=== PATIENT | female | born 1935 | race Caucasian/White ===

== ENCOUNTER 2018-10-20 20:50 | Emergency (ER) ==
[2018-10-20 20:59] VITALS: BP 144/74; TEMP 97.8; BMI 24.6
--- NOTE | 2018-10-20 21:40 | DI ---
Exam: Left foot three-view History: Fall with redness and pain Findings / impression: No acute bony or articular abnormality. Mild degenerative change of the firs t metatarsal phalangeal joint.
--- NOTE | 2018-10-20 22:15 | ED.PDOC ---
General ED Provider: Dr. ONEIDA JARA-ER Chief Complaint: Foot Pain/Injury Stated Complaint: my foot hurts--its red and sore Time Seen by Physician: 20:55 Mode of Arrival: Walk-In Information Source: Patient Exam Limitations: No limitations Primary Care Provider: ONEIDA JARA Nursing and Triage Documentation Reviewed and Agree: Yes Does patient meet sepsis criteria?: No System Inflammatory Response Syndrome: Not Applicable Sepsis Protocol: For patient's 13 years and over: Temp is 96.8 and below OR 101 and greater Pulse >90 BPM Resp >20/minute Acutely Altered Mental Status Are patient's symptoms suggestive of a new infection, such as: -Pneumonia -Skin, Soft Tissue -Endocarditis -UTI -Bone, Joint Infection -Implantable Device -Acute Abdominal Infection -Wound Infection -Meningitis -Blood Stream Catheter Infection -Unknown Skin Complaint Exam - Skin/Soft Tissue Complaint/Exam Onset/Duration: 2 days Symptoms Are: Still present Timing: Constant Initial Severity: Mild Current Severity: Mild Location: anterior left foot Character: Reports: Redness, Swelling, Raised, Painful Aggravating: Reports: Touch Associated Signs and Symptoms: Reports: Tenderness, Red streaks Related Surgical History: Reports: None Recent Exposure to Others w/Similar Symptoms: No Skin Findings: Present: Erythema Joint Tenderness Present: No Differential Diagnoses: Cellulitis, Infection Review of Systems - Review Of Systems Constitutional: Reports: No symptoms Eyes: Reports: No symptoms Ears, Nose, Mouth, Throat: Reports: No symptoms Respiratory: Reports: No symptoms Cardiac: Reports: No symptoms GI: Reports: No symptoms : Reports: No symptoms Musculoskeletal: Reports: No symptoms Skin: Reports: Change in color Neurological: Reports: No symptoms Endocrine: Reports: No symptoms Hematologic/Lymphatic: Reports: No symptoms All Other Systems: Reviewed and Negative Past Medical History - Past Medical History Previously Healthy: Yes Endocrine: Reports: DM 2 Cardiovascular: Reports: Hypertension Respiratory: Reports: COPD Hematological: Reports: None Gastrointestinal: Reports: None Genitourinary: Reports: None Neuro/Psych: Reports: None Musculoskeletal: Reports: None Cancer: Reports: Breast Last Menstrual Period: hyst - Surgical History General Surgical History: Reports: Unknown - Family History Family History: Reports: Unknown - Social History Smoking Status: Current some day smoker, Light tobacco smoker Hx Substance Use: No Alcohol Screening: Occasionally - Immunizations Tetanus Shot up to Date: No (unsure) Physical Exam - Physical Exam Appearance: Well-appearing, No pain distress, Well-nourished Eyes: HERMINIO, EOMI, Conjunctiva clear ENT: Ears normal, Nose normal, Oropharynx normal Neck: Supple Respiratory: Airway patent, Breath sounds clear, Breath sounds equal, Respirations nonlabored Cardiovascular: RRR, Pulses normal, No rub, No murmur GI/: Soft, Nontender, No masses, Bowel sounds normal, No Organomegaly Musculoskeletal: Normal strength, ROM intact, No edema, No calf tenderness Skin: Warm, Dry, Normal color Neurological: Sensation intact, Motor intact, Reflexes intact, Cranial nerves intact, Alert, Oriented Psychiatric: Affect appropriate, Mood appropriate Interpretation - Radiology Interpretation Radiology Interpretation By: Radiologist Radiology Results: Negative Critical Care Note - Critical Care Note Total Time (mins): 0 Course - Course Hematology/Chemistry: 10/20/18 21:16 10/20/18 21:16 Orders, Labs, Meds: Lab Review 10/20/18 10/20/18 21:16 21:16 WBC 9.99 RBC 3.88 L Hgb 11.5 L Hct 35.9 L MCV 92.5 MCH 29.6 MCHC 32.0 RDW Coeff of Fadi 13.3 Plt Count 274 Immature Gran % (Auto) 0.3 Neut % (Auto) 66.1 Lymph % (Auto) 19.3 [place] % (Auto) 10.5 H Eos % (Auto) 3.2 Baso % (Auto) 0.6 Immature Gran # (Auto) 0.0 Neut # (Auto) 6.6 Lymph # (Auto) 1.9 [place] # (Auto) 1.1 Eos # (Auto) 0.3 Baso # (Auto) 0.1 ESR 12 Sodium 139.9 Potassium 3.99 Chloride 105.3 Carbon Dioxide 25.3 Anion Gap 13.29 BUN 16.5 Creatinine 0.92 Estimated GFR (MDRD) 58.00 BUN/Creatinine Ratio 17.93 Glucose 104.3 Uric Acid 5.32 Calcium 8.82 Total Bilirubin 0.35 AST 26.1 ALT 17.2 Alkaline Phosphatase 70.7 Total Protein 6.33 Albumin 4.05 Globulin 2.28 Albumin/Globulin Ratio 1.77 Orders Category Date Time Status CBC W/ AUTO DIFF Stat LAB 10/20/18 21:16 Completed COMPREHENSIVE METABOLIC PANEL Stat LAB 10/20/18 21:16 Completed ESR Stat LAB 10/20/18 21:16 Completed URIC ACID Stat LAB 10/20/18 21:16 Completed FOOT, LEFT 3 VIEWS Stat RADS 10/20/18 21:07 Completed Vital Signs: Temp Pulse Resp BP Pulse Ox 10/20/18 20:51 97.8 F 61 20 144/74 H 96 Departure - Departure Time of Disposition: 22:15 Disposition: HOME SELF-CARE Discharge Problem: Cellulitis of foot Instructions: Cellulitis (ED) Condition: Good Pt referred to PMD for follow-up: Yes IPMP verified?: No Additional Instructions: clindamycin 300mg qid x7 dyas --medrol dose pack---keep foot elevated as much as possible---see me in the office next tuesday Allergies/Adverse Reactions: Allergies codeine Adverse Reaction (Verified 10/20/18 20:59) iodine Adverse Reaction (Verified 10/20/18 20:59) lisinopril Adverse Reaction (Verified 10/20/18 20:59) ct dye Allergy (Intermediate, Uncoded 10/20/18 20:59) Hives Home Medications: Ambulatory Orders Metformin HCl 500 mg PO DAILY 05/20/14 Aspirin [Aspirin Chewable] 81 mg PO DAILY 04/03/15 Polyethylene Glycol 3350 [Miralax] 17 gm PO DAILY PRN 04/03/15 Metoprolol Tartrate [Lopressor] 25 mg PO BID 10/20/18 Disposition Discussed With: Patient
== END 2018-10-20 22:25 | disposition home or self-care (01) ==
LOC: ED 20:50
DX: L03.116 Cellulitis of left lower limb (principal); F17.210 Nicotine dependence, cigarettes, uncomplicated; E11.9 Type 2 diabetes mellitus without complications; I10 Essential (primary) hypertension; Z79.899 Other long term (current) drug therapy
CPT/HCPCS: 36415; 80053; 84550; 85025; 85651; 99283